=== PATIENT | male | born 1955 | race Caucasian/White ===

== ENCOUNTER 2017-06-18 11:17 | Observation (INO) | payer BC ==
[~2017-06-18] VITALS: Ht 167.6 cm; Wt 70.0 kg
[2017-06-18 11:20] VITALS: BP 112/80; PULSE 100; RESP 20; TEMP 99; O2SAT 99
[2017-06-18] MEDS ORDERED: LOSA25TA PO (11:24)
[2017-06-18 11:39] VITALS: BP 129/93; PULSE 86; RESP 21; TEMP 99.3; O2SAT 95
--- NOTE | 2017-06-18 11:54 | PD ---
HPI Chief Complaint: Chest Pain Time Seen by Provider: 11:54 Travel History International Travel<30 days: No Contact w/Intl Traveler<30days: No Traveled to known affect area: No History of Present Illness HPI 61-year-old male presents to the emergency Department with complaint of chest pressure, shortness of breath, cough, nasal congestion and chest congestion, body aches, headache, dizziness, decreased appetite, fever since Tuesday. MAXIMUM TEMPERATURE of 101.7. Reports sore throat and relates it to frequent coughing exacerbations. Describes chest pressure as heavy and constant and is worse with coughing. Reports sputum production. Denies hemoptysis. Denies heart palpitations. Denies recent surgery or travel. Reports occasional wheezing. Reports frequent cough exacerbations. Denies tobacco use. Denies history of asthma or COPD. Denies abdominal pain, nausea, vomiting. Has been taking Motrin, aspirin, and Aleve for symptom management. Symptoms are moderate in severity. Allergies to penicillin. History of hypertension and takes losartan. Primary care provider is Dr. Rao. Has no other medical complaints. No other modifying factors or associated signs and symptoms. 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) Diminished Hearing: No Hypertension: Yes Tetanus Vaccination: > 5 Years Past Surgical History Abdominal Surgery: Yes (ulcer cauterization) Tonsillectomy: Yes Social History Alcohol Use: Yes (weekend beers ) Tobacco Use: No Substance Use: No Allergies-Medications (Allergen,Severity, Reaction): Coded Allergies: Penicillin (Verified Allergy, Severe, 06/18/17) Reported Meds & Prescriptions Reported Meds & Active Scripts Active Reported Losartan (Losartan Potassium) 25 Mg Tab 25 Mg PO DAILY Review of Systems Except as stated in HPI: all other systems reviewed are Neg Physical Exam Narrative GENERAL: Well-nourished, well-developed male patient, in no acute distress; low-grade fever of 99.3 SKIN: Warm and dry. No rash. HEAD: Atraumatic. Normocephalic. EYES: Pupils equal and round. No scleral icterus. No injection or drainage. ENT: Mucosa pink and moist. No erythema or exudates. No uvular edema. No uvular , palatal, or tonsillar deviation. Airway patent. EARS: Bilateral pinnae and external canals appear within normal limits. Bilateral tympanic membranes without erythema, dullness or perforation. NECK: Trachea midline. No lymphadenopathy. CARDIOVASCULAR: Regular rate and rhythm. No murmur appreciated. RESPIRATORY: No accessory muscle use. Clear to auscultation. Breath sounds equal bilaterally. No retractions or tachypnea. GASTROINTESTINAL: Abdomen soft, non-tender, nondistended. Hepatic and splenic margins not palpable. Bowel sounds are active 4 quadrants. MUSCULOSKELETAL: No obvious deformities. No clubbing. No cyanosis. No edema. NEUROLOGICAL: Awake and alert. Oriented 3. No obvious cranial nerve deficits. Motor grossly within normal limits. Normal speech. Moves all extremities. 5/5 strength to all extremities. PSYCHIATRIC: Appropriate mood and affect; insight and judgment normal. Data Data Last Documented VS Vital Signs Date Time Temp Pulse Resp B/P Pulse Ox O2 Delivery O2 Flow Rate FiO2 06/18/17 13:14 20 06/18/17 11:39 99.3 86 129/93 95 Room Air Orders Electrocardiogram (06/18/17 11:55) Basic Metabolic Panel (Bmp) (06/18/17 11:55) Complete Blood Count With Diff (06/18/17 11:55) Magnesium (Mg) (06/18/17 11:55) Prothrombin Time / Inr (Pt) (06/18/17 11:55) Act Partial Throm Time (Ptt) (06/18/17 11:55) Troponin I (06/18/17 11:55) Chest, Single Ap (06/18/17 11:55) Ecg Monitoring (06/18/17 11:55) Iv Access Insert/Monitor (06/18/17 11:55) Oximetry (06/18/17 11:55) Sodium Chloride 0.9% Flush (Ns Flush) (06/18/17 12:00) Influenzae A/B Antigen (06/18/17 12:00) Ketorolac Inj (Toradol Inj) (06/18/17 12:15) Albuterol Neb (Albuterol Neb) (06/18/17 12:15) Sodium Chlor 0.9% 1000 Ml Inj (Ns 1000 M (06/18/17 13:00) Oseltamivir (Tamiflu) (06/18/17 14:15) Admit Order (Ed Use Only) (06/18/17 14:12) Labs Laboratory Tests Test 06/18/17 11:45 White Blood Count 3.6 TH/MM3 Red Blood Count 5.08 MIL/MM3 Hemoglobin 16.5 GM/DL Hematocrit 45.1 % Mean Corpuscular Volume 88.9 FL Mean Corpuscular Hemoglobin 32.6 PG Mean Corpuscular Hemoglobin 36.7 % Concent Red Cell Distribution Width 13.2 % Platelet Count 118 TH/MM3 Mean Platelet Volume 9.4 FL Neutrophils (%) (Auto) 67.9 % Lymphocytes (%) (Auto) 19.4 % Monocytes (%) (Auto) 11.6 % Eosinophils (%) (Auto) 0.6 % Basophils (%) (Auto) 0.5 % Neutrophils # (Auto) 2.5 TH/MM3 Lymphocytes # (Auto) 0.7 TH/MM3 Monocytes # (Auto) 0.4 TH/MM3 Eosinophils # (Auto) 0.0 TH/MM3 Basophils # (Auto) 0.0 TH/MM3 CBC Comment AUTO DIFF Differential Total Cells 100 Counted Neutrophils % (Manual) 50 % Band Neutrophils % 28 % Lymphocytes % 12 % Monocytes % 10 % Neutrophils # (Manual) 2.8 TH/MM3 Differential Comment FINAL DIFF MANUAL Platelet Estimate LOW Platelet Morphology Comment NORMAL Red Cell Morphology Comment NORMAL Prothrombin Time 11.2 SEC Prothromb Time International 1.0 RATIO Ratio Activated Partial 31.8 SEC Thromboplast Time Sodium Level 133 MEQ/L Potassium Level 3.8 MEQ/L Chloride Level 96 MEQ/L Carbon Dioxide Level 27.6 MEQ/L Anion Gap 9 MEQ/L Blood Urea Nitrogen 16 MG/DL Creatinine 1.32 MG/DL Estimat Glomerular Filtration 55 ML/MIN Rate Random Glucose 89 MG/DL Calcium Level 8.2 MG/DL Magnesium Level 2.1 MG/DL Troponin I LESS THAN 0.02 NG/ML [facility] Medical Decision Making Medical Screen Exam Complete: Yes Emergency Medical Condition: Yes Medical Record Reviewed: Yes Differential Diagnosis Influenza, pneumonia, bronchitis Narrative Course 61-year-old male with cold/flu symptoms. Also complaining of chest pressure and shortness of breath. Lungs are clear and equal throughout. No wheezing on auscultation or audible wheezing. Oxygen saturation is 98% on room air. No retractions or tachypnea. Patient has low-grade fever of 99.3. Reports MAXIMUM TEMPERATURE 101.7 at home. Chest x-ray, BMP, CBC, troponin, EKG, albuterol nebulizer, Toradol ordered. 1250: Influenza B-positive. Chest x-ray with no acute findings. CBC unremarkable. Normal saline bolus ordered. 1310: Sodium 133. Creatinine 1.32. Troponin less than 0.02. 1321: Band neutrophils 28. 1411: Dr Vasquez spoke with Dr. Roth and gave report for patient admission. Physician Communication Physician Communication Dr. Vasquez spoke with Dr. Roth. Diagnosis Primary Impression: Influenza B Admitting Information Admitting Physician Requests: Admit Lissy Nuno Jun 18, 2017 11:54 soup etc. Use an air humidifier/turn off ceiling fans Follow-up with your primary care provider within 1 day Return immediately to the emergency department with worsening of symptoms Disposition: 01 DISCHARGE HOME Condition: Stable Lissy Nuno Jun 18, 2017 11:54
[2017-06-18 12:00] LABS: MEAN CORPUSCULAR HGB CONC 36.7 % (32.0-36.0)
[2017-06-18] MEDS ORDERED: SODIUM CHLORIDE 0.9% FLUSH 10 ML FLUSH IVF PRN (12:00)
[2017-06-18] MEDS ORDERED: KETOROLAC TROMETHAMINE 30 MG/ML (IVP) VIAL IV PUSH ONE (12:15)
[2017-06-18] MEDS ORDERED: RESP: ALBUTEROL 2.5 MG/3 ML NEB (SCH) INH ONE (12:15)
--- NOTE | 2017-06-18 12:30 | RADRPT ---
EXAM DATE/TIME: 06/18/2017 12:06 [facility] COMPARISON: No previous studies available for comparison. INDICATIONS : Vomiting, cough and short of breath. MEDICAL HISTORY : None. SURGICAL HISTORY : None. ENCOUNTER: Initial ACUITY: 4 - 6 days PAIN SCORE: 5/10 LOCATION: Bilateral chest FINDINGS: A single view of the chest demonstrates the lungs to be symmetrically aerated without evidence of mas s, infiltrate or effusion. The cardiomediastinal contours are unremarkable. Osseous structures are intact. CONCLUSION: No acute disease. Eligio Chávez MD on June 18, 2017 at 12:28 Board Certified Radiologist. This report was verified electronically.
[2017-06-18 12:41] LABS: AUTOMATED NEUTROPHIL # 2.5 TH/MM3 (1.8-7.7); BASOPHIL % 0.5 % (0.0-2.0); EOSINOPHIL % 0.6 % (0.0-4.0); HEMATOCRIT 45.1 % (39.0-51.0); LYMPH % 19.4 % (9.0-44.0); LYMPHOCYTE # 0.7 TH/MM3 (1.0-4.8); MEAN CELL VOLUME 88.9 FL (80.0-100.0); MEAN CORPUSCULAR HEMOGLOBIN 32.6 PG (27.0-34.0); MONO % 11.6 % (0.0-8.0); NEUT % 67.9 % (16.0-70.0); PLATELET COUNT 118 TH/MM3 (150-450); RED BLOOD COUNT 5.08 MIL/MM3 (4.50-5.90); RED CELL DISTRIBUTION WIDTH 13.2 % (11.6-17.2); WHITE BLOOD COUNT 3.6 TH/MM3 (4.0-11.0)
[2017-06-18 12:42] LABS: HEMO FLAGS AUTO DIFF
[2017-06-18 12:51] LABS: APTT (PATIENT) 31.8 SEC (24.3-30.1); PROTHROMBIN TIME - PATIENT 11.2 SEC (9.8-11.6)
[2017-06-18] MEDS ORDERED: SODIUM CHLOR 0.9% 1000 ML INJ 1,000 ML IV ONE (13:00)
[2017-06-18 13:01] LABS: ANION GAP 9 MEQ/L (5-15); BICARBONATE 27.6 MEQ/L (21.0-32.0); BLOOD UREA NITROGEN 16 MG/DL (7-18); CHLORIDE 96 MEQ/L (98-107); GLOMERULAR FILTRATION RATE 55 ML/MIN (>89); MAGNESIUM 2.1 MG/DL (1.5-2.5); POTASSIUM 3.8 MEQ/L (3.5-5.1); SODIUM (NA) 133 MEQ/L (136-145)
[2017-06-18 13:13] LABS: BANDS 28 % (0-6); NEUTROPHIL # MANUAL DIFF 2.8 TH/MM3 (1.8-7.7); PLATELET ESTIMATE SMEAR LOW (NORMAL); PLATELET MORPHOLOGY NORMAL (NORMAL); POLYS (SEG NEUTROPHILS) 50 % (16-70); SCAN/DIFF FINAL DIFF MANUAL; WBC DIFF SAMPLE 100
[2017-06-18 13:22] VITALS: BP 151/89; PULSE 105; RESP 20; O2SAT 98
[2017-06-18] MEDS ORDERED: OSELTAMIVIR PHOSPHATE 75 MG CAP PO ONE (14:15)
[2017-06-18] MEDS ORDERED: SODIUM CHLORIDE 0.9% FLUSH 10 ML FLUSH IV FLUSH PRN (14:30)
[2017-06-18] MEDS ORDERED: LACTULOSE SYRUP 20 GM/30 ML CUP PO PRN (14:30)
[2017-06-18] MEDS ORDERED: NALOXONE HCL 0.4 MG/ML AMP IV PRN (14:30)
[2017-06-18] MEDS ORDERED: BISACODYL 10 MG SUPP RECTAL PRN (14:30)
[2017-06-18] MEDS ORDERED: ONDANSETRON HCL 4 MG/2 ML VIAL IVP PRN (14:30)
[2017-06-18] MEDS ORDERED: MAGNESIUM HYDROXIDE SUSP 30 ML CUP PO PRN (14:30)
[2017-06-18] MEDS ORDERED: SENNOSIDES 8.6 MG TAB PO PRN (14:30)
--- NOTE | 2017-06-18 14:40 | PD ---
Data Data Last Documented VS Vital Signs Date Time Temp Pulse Resp B/P Pulse Ox O2 Delivery O2 Flow Rate FiO2 06/18/17 13:14 20 06/18/17 11:39 99.3 86 129/93 95 Room Air Orders Electrocardiogram (06/18/17 11:55) Basic Metabolic Panel (Bmp) (06/18/17 11:55) Complete Blood Count With Diff (06/18/17 11:55) Magnesium (Mg) (06/18/17 11:55) Prothrombin Time / Inr (Pt) (06/18/17 11:55) Act Partial Throm Time (Ptt) (06/18/17 11:55) Troponin I (06/18/17 11:55) Chest, Single Ap (06/18/17 11:55) Ecg Monitoring (06/18/17 11:55) Iv Access Insert/Monitor (06/18/17 11:55) Oximetry (06/18/17 11:55) Sodium Chloride 0.9% Flush (Ns Flush) (06/18/17 12:00) Influenzae A/B Antigen (06/18/17 12:00) Ketorolac Inj (Toradol Inj) (06/18/17 12:15) Albuterol Neb (Albuterol Neb) (06/18/17 12:15) Sodium Chlor 0.9% 1000 Ml Inj (Ns 1000 M (06/18/17 13:00) Oseltamivir (Tamiflu) (06/18/17 14:15) Admit Order (Ed Use Only) (06/18/17 14:12) Labs Laboratory Tests Test 06/18/17 11:45 White Blood Count 3.6 TH/MM3 Red Blood Count 5.08 MIL/MM3 Hemoglobin 16.5 GM/DL Hematocrit 45.1 % Mean Corpuscular Volume 88.9 FL Mean Corpuscular Hemoglobin 32.6 PG Mean Corpuscular Hemoglobin 36.7 % Concent Red Cell Distribution Width 13.2 % Platelet Count 118 TH/MM3 Mean Platelet Volume 9.4 FL Neutrophils (%) (Auto) 67.9 % Lymphocytes (%) (Auto) 19.4 % Monocytes (%) (Auto) 11.6 % Eosinophils (%) (Auto) 0.6 % Basophils (%) (Auto) 0.5 % Neutrophils # (Auto) 2.5 TH/MM3 Lymphocytes # (Auto) 0.7 TH/MM3 Monocytes # (Auto) 0.4 TH/MM3 Eosinophils # (Auto) 0.0 TH/MM3 Basophils # (Auto) 0.0 TH/MM3 CBC Comment AUTO DIFF Differential Total Cells 100 Counted Neutrophils % (Manual) 50 % Band Neutrophils % 28 % Lymphocytes % 12 % Monocytes % 10 % Neutrophils # (Manual) 2.8 TH/MM3 Differential Comment FINAL DIFF MANUAL Platelet Estimate LOW Platelet Morphology Comment NORMAL Red Cell Morphology Comment NORMAL Prothrombin Time 11.2 SEC Prothromb Time International 1.0 RATIO Ratio Activated Partial 31.8 SEC Thromboplast Time Sodium Level 133 MEQ/L Potassium Level 3.8 MEQ/L Chloride Level 96 MEQ/L Carbon Dioxide Level 27.6 MEQ/L Anion Gap 9 MEQ/L Blood Urea Nitrogen 16 MG/DL Creatinine 1.32 MG/DL Estimat Glomerular Filtration 55 ML/MIN Rate Random Glucose 89 MG/DL Calcium Level 8.2 MG/DL Magnesium Level 2.1 MG/DL Troponin I LESS THAN 0.02 NG/ML MDM Supervised Visit with KERI: Yes Narrative Course The history, exam, and medical decision-making in the associated midlevel provider note were completed with my assistance. I reviewed and agree with the findings presented. I attest that I had a [id number] encounter with the patient on the same day, and personally performed and documented my assessment and findings in the medical record. *My assessment and Findings: This is a 61-year-old male who presents to the emergency department with generalized weakness, fatigue and flulike symptoms. He tested positive for influenza B. Labs demonstrate a bandemia of 28% which is worrisome. I think the patient would benefit from IV hydration, observation and repeat blood work in the morning. I don't think he requires antibiotics at this time as I suspect this is all related to influenza. He was given a dose of Tamiflu. Diagnosis Primary Impression: Influenza B Additional Instruction: Ibuprofen or Tylenol as directed and as needed to reduce fever; may alternate ibuprofen and Tylenol as needed every 3 hours to minimize fever [id number] cold/flu medications as directed and as needed for symptom management Get plenty of sleep/rest Drink plenty of fluids to prevent dehydration; such as Gatorade, Powerade, Pedialyte [place] diet to encourage nutrition such as crackers, fruit, applesauce, toast, soup etc. Use an air humidifier/turn off ceiling fans Follow-up with your primary care provider within 1 day Return immediately to the emergency department with worsening of symptoms Zoraida Vasquez MD Jun 18, 2017 14:39
[2017-06-18 14:56] VITALS: BP 122/76; PULSE 83; RESP 16; TEMP 99; O2SAT 95
[2017-06-18] MEDS: SODIUM CHLOR 0.9% 1000 ML INJ 1,000 ML IV SCH (14:56)
[2017-06-18 16:22] VITALS: BP 114/67; PULSE 82; RESP 15; TEMP 98.1; O2SAT 96
--- NOTE | 2017-06-18 16:38 | MH ---
cc: GENESIS RUSSELL MD Corrected Copy: 06/20/17 DATE OF ADMISSION: 06/18/2017 CHIEF COMPLAINT: Cough, fever, chills, atypical chest pain. TRAVEL IN THE LAST THIRTY DAYS: None. HISTORY OF PRESENT ILLNESS: This is a pleasant 61-year-old white male who had been in his usual state of health up until about four or five days ago. He started noticing acute onset of body aches, headaches, dizziness, coughing to the point that he is now having musculoskeletal chest pain. The patient was unable to sleep at night due to the coughing and the body aches. He came to the emergency room for further evaluation and was found to be positive for influenza B. PAST MEDICAL HISTORY: 1. Heart murmur. 2. Hypertension. 3. Ulcers. PAST SURGICAL HISTORY: 1. Ulcer cauterization. ALLERGIES: PENICILLIN. MEDICATIONS: 1. Losartan. SOCIAL HISTORY: The patient is and currently here with his as a support system. No tobacco. No illicit drugs. Beer drinking mostly on the weekends. REVIEW OF SYSTEMS: A twelve point review was obtained and positives noted are noted in the history of present illness which include headache, dizziness, body aches, chest congestion, nasal congestion, cough, atypical chest pain onset approximately four days ago. Other systems not mentioned negative or unremarkable. PHYSICAL EXAMINATION: VITAL SIGNS: Temperature is 99.3, pulse 83, respirations 16, blood pressure 122/76 and 112/80 on admission. 02 sat 95 currently on room air. GENERAL: A well-developed, well-nourished middle-aged male who looks to be his stated age resting in the bed. He is alert and oriented and is a good historian. SKIN: Flushed, warm and dry. HEAD, EYES, EARS, NOSE, THROAT: Normocephalic and atraumatic. Pupils equal, round and reactive to light and accommodation. The mucous membranes are dry. No scleral icterus. NECK: The neck is supple. CARDIOVASCULAR: S1-S2 and rhythm is regular. Soft systolic murmur noted at the lower left sternal border. He has no edema and his pulses are intact. RESPIRATORY: Lungs are essentially clear to auscultation. No wheezes, rales or rhonchi noted. He is positive for cough but no sputum production. ABDOMEN: The abdomen is flat, soft, nontender and nondistended. Active bowel sounds. MUSCULOSKELETAL: Moves his extremities with purpose. He has equal hand fraud analyst. No obvious deformity. NEUROLOGIC: He is alert and oriented. Speech is clear. PSYCHIATRIC: Appropriate mood and affect. DIAGNOSTIC DATA: White blood cell count 3.6, RBCs 5.08, hemoglobin 16.5, hematocrit 45.1, MCHC 36.7, platelet count 118,000, monocyte count 11.6, lymphocyte count 0.7. PT and INR 1. Chemistries: Sodium 133, potassium 3.8, chloride 96, carbon dioxide 27.6, anion gap 9, BUN 16, creatinine 1.32, GFR 55, random glucose 89, calcium 8.2. Troponin 0.02. RADIOLOGICAL STUDIES: Normal chest x-ray. ASSESSMENT AND PLAN: 1. Influenza B with cough uncontrolled. 2. Thrombocytopenia. 3. Hyponatremia, mild. 4. Acute kidney injury. PLAN: 1. Admit. 2. We are going to monitor the patient's vital signs every 4 hours and as warranted. 3. Monitor his labs. 4. Continue with ECG monitoring. 5. The patient received a DuoNeb treatment in the emergency room with sodium chloride bolus. We are going to continue those IV fluids for gentle hydration. 6. We have placed the patient on Tamiflu 75 milligrams p.o. twice a day. 7. He has bowel regimen if needed. The patient states that he did have a bowel movement in the past 24 hours so we will monitor. 8. DVT prophylaxis with heparin. 9. Lab work ordered in the morning. 10. Medications for nausea and pain. 11. Heart-healthy diet. 12. Cozaar has been re-started. The patient is full code and full aggressive care. We will follow. Dictated by MARY Botello. MD ALFONSO Whatley/NATHALY /4:14 PM /8:50 AM
--- NOTE | 2017-06-18 16:39 | HHI.PR ---
Objective Objective Results - Vital Signs Date Time Temp Pulse Resp B/P Pulse Ox O2 Delivery O2 Flow Rate FiO2 06/18/17 16:22 98.1 82 15 114/67 96 06/18/17 14:56 99.0 83 16 122/76 95 Room Air 06/18/17 13:14 20 06/18/17 11:39 99.3 86 21 129/93 95 Room Air 06/18/17 11:32 Room Air 06/18/17 11:20 99.0 100 20 112/80 99 Room Air Result Diagram: 06/18/17 1145 06/18/17 1145 Physical Exam Physical Exam PHYSICAL EXAMINATION GENERAL: This is a well-developed, well-nourished male who appears to be in no acute distress. He is alert and awake, []. HEAD: Normocephalic without any lesion or mass noted. Facial features appear symmetric. OROPHARYNGEAL: Oropharynx without erythema or edema. NECK: Supple. No nuchal rigidity or lymphadenopathy. Trachea midline without deviation. CARDIAC: Regular rhythm, regular rate, S1 and S2 are heard. Murmur []; no gallops or rubs. LUNGS: Clear to auscultation bilaterally. [] wheeze, [] rhonchi or [] rale. No use of accessory muscles on inspiration or expiration. ABDOMEN: Soft, nontender, no organomegaly or masses. Bowel sounds are heard in all four quadrants. No rebound. No guarding. EXTREMITIES: [] edema. Pulses equal bilateral. [] cyanosis. NEUROLOGICAL: Patient mood and affect appropriate. No focal deficit SKIN:Warm and moist A/P Assessment and Plan dictated, [id number] flu B SHARITA leukopenia cough, atypical cp fever, thrombocytopenia Susan Andrade Jun 18, 2017 16:38
[2017-06-18 20:15] VITALS: BP 139/75; PULSE 82; RESP 17; TEMP 97.5; O2SAT 96
[2017-06-18] MEDS ORDERED: ACETAMINOPHEN 325 MG TAB PO PRN (20:15)
[2017-06-18] MEDS ORDERED: ACETAMINOPHEN/HYDROcodone 325 MG/5 MG TAB PO PRN (20:15)
[2017-06-18] MEDS ORDERED: guaiFENesin SOLUTION 200 MG/10 ML CUP PO PRN (20:15)
[2017-06-18] MEDS: DOCUSATE SODIUM 50 MG/SENNA 8.6 MG TAB PO SCH (21:00)
[2017-06-18] MEDS: HEPARIN SODIUM - SQ 10,000 UNITS/ML VIAL SQ SCH (21:35)
[2017-06-18] MEDS: SODIUM CHLORIDE 0.9% FLUSH 10 ML FLUSH IV FLUSH SCH (21:36)
[2017-06-18] MEDS: OSELTAMIVIR PHOSPHATE 75 MG CAP PO SCH (21:36)
[2017-06-19] VITALS (9 sets, daily range): BP systolic 116–138; BP diastolic 60–76; PULSE 69–91; RESP 17–20; TEMP 96.8–101; O2SAT 95–96
[2017-06-19] MEDS: SODIUM CHLOR 0.9% 1000 ML INJ 1,000 ML IV SCH ×3 (00:39→21:14)
--- NOTE | 2017-06-19 06:33 | RADRPT ---
EXAM DATE/TIME: 06/19/2017 06:20 [facility] COMPARISON: CHEST SINGLE AP, June 18, 2017, 12:06. INDICATIONS : Influenza. MEDICAL HISTORY : None. SURGICAL HISTORY : None. ENCOUNTER: Subsequent ACUITY: 2 days PAIN SCORE: 0/10 LOCATION: Bilateral chest FINDINGS: PA and lateral views of the chest demonstrate the lungs to be symmetrically aerated without evidence of mass, infiltrate or effusion. Small calcified granuloma right upper lobe. The cardiomediastinal co ntours are unremarkable. Osseous structures are intact. CONCLUSION: No acute disease. Tony Rebolledo MD on June 19, 2017 at 6:31 Board Certified Radiologist. This report was verified electronically.
--- NOTE | 2017-06-19 08:37 | HHI.PR ---
Subjective Remarks Still coughing Sleeping this morning Fever this past a.m. States he is feeling somewhat better (Susan Andrade) Objective Objective Results - Vital Signs Date Time Temp Pulse Resp B/P Pulse Ox O2 Delivery O2 Flow Rate FiO2 06/19/17 05:37 98.8 06/19/17 04:04 101.0 85 17 138/71 96 06/19/17 00:00 98.1 81 17 131/70 95 06/18/17 20:15 97.5 82 17 139/75 96 06/18/17 16:22 98.1 82 15 114/67 96 06/18/17 14:56 99.0 83 16 122/76 95 Room Air 06/18/17 13:14 20 06/18/17 11:39 99.3 86 21 129/93 95 Room Air 06/18/17 11:32 Room Air 06/18/17 11:20 99.0 100 20 112/80 99 Room Air I/O 06/18/17 06/18/17 06/18/17 06/19/17 06/19/17 06/19/17 07:00 15:00 23:00 07:00 15:00 23:00 Intake Total 50 ml Balance 50 ml Intake Oral 50 ml (Susan Andrade) Result Diagram: 06/18/17 1145 06/18/17 1145 ROS General: Fatigue, Weakness, Other (10 point ROS done positives noted) Pulmonary: Cough, SOB (Susan Andrade) Physical Exam Physical Exam PHYSICAL EXAMINATION GENERAL: This is a well-developed, well-nourished male Resting in the bed He is drowsy but responds to verbal stimuli HEAD: Normocephalic Facial features appear symmetric. OROPHARYNGEAL: Oropharynx moist NECK: Supple. Trachea midline without deviation. CARDIAC: Regular rhythm, regular rate, S1 and S2 are heard LUNGS: Diminished to auscultation bilaterally. Mild rhonchi mild use of accessory muscles on inspiration or expiration. ABDOMEN: Soft, nontender, no organomegaly or masses. Bowel sounds are heard in all four quadrants. No rebound. No guarding. EXTREMITIES: no edema. Pulses equal bilateral. NEUROLOGICAL: Patient mood and affect appropriate. Speech is clear SKIN:Warm and dry (Susan Andrade) A/P Assessment and Plan flu B IV fluids continue, medical management with Tamiflu, cough, added duo neb treatments SHARITA Continue IV fluids which should help to stabilize, patient has not been drinking or eating as much lately leukopenia Positive for influenza B cough, atypical cp Added dual nebs this morning encourage patient to cough and deep breathe, brace his chest with a pillow to cough fever, Continues, treated this early a.m., states he is feeling somewhat better thrombocytopenia Monitor his labs Hyponatremia, continue IV fluids normal saline at 100 cc an hour, monitor his labs Discussed with patient Discussed with nurse Discussed with Dr. Enriquez, seen on his behalf (Susan Andrade) Assessment and Plan seen, examined by myself, Dr Enriquez, today Discussed with patient He feels better Labs still pending Likely he can be discharged home today after lab results Discussed with nurse Discussed with mid level provider The exam, history, and the medical decision-making described in the above note were completed with the assistance of the mid-level provider. I reviewed the findings presented. I attest that I had a [id number] encounter with the patient on the same day, and personally performed and documented my assessment and findings in the medical record. 45 minutes (Joanne Enriquez MD) Susan Andrade Jun 19, 2017 08:37 Joanne Enriquez MD Jun 19, 2017 12:36
[2017-06-19] MEDS: DOCUSATE SODIUM 50 MG/SENNA 8.6 MG TAB PO SCH ×2 (09:50→21:00)
[2017-06-19] MEDS: SODIUM CHLORIDE 0.9% FLUSH 10 ML FLUSH IV FLUSH SCH ×2 (09:51→21:16)
[2017-06-19] MEDS: LOSARTAN 25 MG TAB PO SCH (09:51)
[2017-06-19] MEDS: HEPARIN SODIUM - SQ 10,000 UNITS/ML VIAL SQ SCH (09:51)
[2017-06-19] MEDS: OSELTAMIVIR PHOSPHATE 75 MG CAP PO SCH ×2 (09:52→21:16)
[2017-06-19] MEDS: RESP: ALBUTEROL 2.5 MG/IPRATROPIUM 0.5 MG NEB (SCH) NEB ×3 (11:47→19:41)
--- NOTE | 2017-06-19 12:19 | EKG ---
Date Performed: 06/18/2017 Time Performed: 11:38:29 PTAGE: 61 years EKG: Sinus rhythm NORMAL ECG NO PREVIOUS TRACING DOCTOR: Saad Duong Interpretating Date/Time 06/19/2017 12:17:35
[2017-06-19 14:20] LABS: AUTOMATED NEUTROPHIL # 0.7 TH/MM3 (1.8-7.7); BASOPHIL % 0.5 % (0.0-2.0); HEMATOCRIT 41.1 % (39.0-51.0); LYMPH % 40.7 % (9.0-44.0); LYMPHOCYTE # 0.6 TH/MM3 (1.0-4.8); MEAN CELL VOLUME 90.2 FL (80.0-100.0); MEAN CORPUSCULAR HEMOGLOBIN 31.7 PG (27.0-34.0); MEAN CORPUSCULAR HGB CONC 35.2 % (32.0-36.0); MONO % 14.3 % (0.0-8.0); NEUT % 42.5 % (16.0-70.0); PLATELET COUNT 90 TH/MM3 (150-450); RED BLOOD COUNT 4.56 MIL/MM3 (4.50-5.90); RED CELL DISTRIBUTION WIDTH 13.2 % (11.6-17.2); WHITE BLOOD COUNT 1.6 TH/MM3 (4.0-11.0)
[2017-06-19 14:38] LABS: HEMO FLAGS AUTO DIFF
[2017-06-19 15:08] LABS: BICARBONATE 28.6 MEQ/L (21.0-32.0); POTASSIUM 3.7 MEQ/L (3.5-5.1)
[2017-06-19 15:11] LABS: BANDS 7 % (0-6); BASOPHILS 1 % (0-2); EOSINOPHILS 2 % (0-4); NEUTROPHIL # MANUAL DIFF 0.8 TH/MM3 (1.8-7.7); POLYS (SEG NEUTROPHILS) 43 % (16-70); WBC DIFF SAMPLE 100
[2017-06-19 15:14] LABS: PLATELET ESTIMATE SMEAR LOW (NORMAL); PLATELET MORPHOLOGY NORMAL (NORMAL); SCAN/DIFF FINAL DIFF MANUAL
[2017-06-19] MEDS ORDERED: RESP: ALBUTEROL 2.5 MG/IPRATROPIUM 0.5 MG NEB (PRN) NEB (19:56)
--- NOTE | 2017-06-19 21:16 | MB ---
cc: JOANNE RUSSELL MD, G. FREDERICK M.D. DEVERAS, RUBY ANNE E. M.D. Oncology new patient consultative summary DATE OF CONSULTATION 06/19/2017 DATE OF [address] Joanne Russell. CHIEF COMPLAINT Dr. Russell requested consultation for Mr. Love regarding leukopenia and thrombocytopenia. HISTORY OF PRESENT ILLNESS Mr. Love is a 61-year-old man with no significant past history. He was doing well, presented to the emergency room with chest pressure and shortness of breath, nasal congestion, body aches and fever. He had fever Tuesday night and was in bed all day Tuesday. He had sore throat and relates it to coughing. He had an uneventful weekend and placed golf with his friends. He had no sick contact. No recent travels. He was admitted to the hospital under observation. LABORATORY DATA Laboratory findings include positive strep and positive for influenza B antigen. CBC shows a white count of 3.6 on admission, predominately monocytes. There is mild bandemia. Platelet count is 118,000. On repeat his white blood cell count decreased to 1.6, platelet count of 90,000. His bands decreased. His neutrophils are 800. PTT mildly prolonged. Total protein is decreased at 5.8. Renal function is normal. He is well-known patient to Dr. [place] [facility]. He reports a checkup recently and had blood work that was completely normal. He has unaware of ever having leukopenia or thrombocytopenia. He considers himself healthy. He is up-to-date with the screening cancer. He reports his only vice is drinking. He drinks on weekends socially. He continues to feel the same symptoms. He is achy. His T max 100.2. He was started on Tamiflu on 06/18. His is in the midst of getting her dose of prophylactic Tamiflu through Dr. Romo's office. Hematology/Oncology is consulted for the leukopenia / neutropenia and thrombocytopenia. Rest of his review of systems is negative. PAST MEDICAL HISTORY 1. Hypertension. 2. Ulcer. 3. Heart murmur. PAST SURGICAL HISTORY Colonoscopy, endoscopy with ulcer cauterization. SOCIAL HISTORY He is and lives with his . He denies any tobacco or illicit drug use. He gets toxicology testing frequently at his work. He works for [employer]. He drinks beer mostly on the weekends. FAMILY HISTORY Father had gastric cancer and of surgical complication in his 70s. Mother recently . No history of cancer. PHYSICAL EXAMINATION VITAL SIGNS: Temperature 100.2, heart rate 91, respiratory 17, blood pressure 130/76, saturation 96%. GENERAL: Mr. Love is a well-developed, well-nourished man who looks toxic and ill. He is hyperemic with flushed cheeks. He looks congested. She has a cough. HEENT: His pupils are round, reactive to light and accommodation. Oropharynx is clear. NECK: Supple. LUNGS: Clear. CARDIOVASCULAR: Exam reveals normal rate, rhythm. ABDOMEN: Benign. No hepatosplenomegaly. EXTREMITIES: Lower extremity with no edema. NEUROLOGIC: Exam is nonfocal. LABORATORY DATA As described above. ASSESSMENT/PLAN Mr. Love is a 61-year-old man with a history of hypertension. He had no apparent sick contact, but still acquired flu and strep. He is admitted with influenza B strain. He does not usually get a flu vaccinations although it is offered at work for free. Associated with his flu is leukopenia and thrombocytopenia. We discussed these findings may be associated to his acute viral illness. It was not present before per history. He is noted to have a further decline in his white count temporarily related to starting the Tamiflu which has known toxicity of cytopenia. In the meantime repeat CBC, retic, LDH, smear will be checked. I recommend no specific therapy. We will monitor him closely. He denies any risk factor for HIV and defer from checking. We discussed allowing him to continue on the Tamiflu and anticipate prompt recovery. After discharge he may follow up with Dr. Romo to repeat a CBC and confirm that his leukopenia and thrombocytopenia were related to his current illness. His questions were answered to his satisfaction. He is eager to go home. We will see his progress and response to treatment tomorrow. He has good support. We defer to Dr. Russell the timing of his discharge. Follow up as an outpatient pending the results of laboratory evaluation. Clinically no splenomegaly and therefore defer ultrasound evaluation. MD DEVI Parada/GISELA /8:35 PM /8:50 PM MTDIta
[2017-06-20 04:04] VITALS: BP 135/75; PULSE 90; RESP 17; TEMP 99.4; O2SAT 98
[2017-06-20] MEDS: SODIUM CHLOR 0.9% 1000 ML INJ 1,000 ML IV SCH (06:11)
[2017-06-20 06:18] LABS: RETIC % 0.8 % (0.4-3.0)
[2017-06-20 06:19] LABS: AUTOMATED NEUTROPHIL # 1.2 TH/MM3 (1.8-7.7); BASOPHIL % 0.6 % (0.0-2.0); EOSINOPHIL % 1.5 % (0.0-4.0); HEMATOCRIT 43.3 % (39.0-51.0); LYMPH % 37.1 % (9.0-44.0); LYMPHOCYTE # 0.9 TH/MM3 (1.0-4.8); MEAN CORPUSCULAR HGB CONC 35.6 % (32.0-36.0); MONO % 14.8 % (0.0-8.0); PLATELET COUNT 98 TH/MM3 (150-450); RED BLOOD COUNT 4.81 MIL/MM3 (4.50-5.90); RED CELL DISTRIBUTION WIDTH 13.2 % (11.6-17.2); REVIEW FLAG FINAL; WHITE BLOOD COUNT 2.5 TH/MM3 (4.0-11.0)
[2017-06-20 06:21] LABS: HEMO FLAGS AUTO DIFF
[2017-06-20 06:27] LABS: APTT (PATIENT) 30.8 SEC (24.3-30.1)
[2017-06-20 06:45] LABS: ALT (GPT) 47 U/L (12-78); ANION GAP 7 MEQ/L (5-15); AST (GOT) 34 U/L (15-37); BICARBONATE 28.8 MEQ/L (21.0-32.0); BLOOD UREA NITROGEN 8 MG/DL (7-18); CHLORIDE 102 MEQ/L (98-107); GLOMERULAR FILTRATION RATE 74 ML/MIN (>89); POTASSIUM 4.5 MEQ/L (3.5-5.1); SODIUM (NA) 138 MEQ/L (136-145)
[2017-06-20 06:47] LABS: ALKALINE PHOSPHATASE 61 U/L (45-117); LDH SERUM 219 U/L (87-241); TOTAL BILIRUBIN ADULT 0.7 MG/DL (0.2-1.0)
[2017-06-20 07:25] VITALS: BP 137/92; PULSE 82; RESP 16; TEMP 98.3; O2SAT 97
[2017-06-20 07:45] LABS: PLATELET ESTIMATE SMEAR LOW (NORMAL); PLATELET MORPHOLOGY NORMAL (NORMAL); SCAN/DIFF AUTO DIFF CONFIRMED
--- NOTE | 2017-06-20 08:33 | HHI.PR ---
Subjective Remarks Continues to improve Able to stand at bedside without dizziness Mild fever, 99.4 (Susan Andrade) Objective Objective Results - Vital Signs Date Time Temp Pulse Resp B/P Pulse Ox O2 Delivery O2 Flow Rate FiO2 06/20/17 07:25 98.3 82 16 137/92 97 06/20/17 04:04 99.4 90 17 135/75 98 06/19/17 23:38 99.2 87 17 126/72 96 06/19/17 21:05 98.8 06/19/17 19:37 100.2 91 17 130/76 96 06/19/17 15:47 98.6 70 18 118/60 95 06/19/17 12:40 97.8 85 18 116/73 95 06/19/17 08:39 96.8 69 20 116/61 96 I/O 06/19/17 06/19/17 06/19/17 06/20/17 06/20/17 06/20/17 06:59 14:59 22:59 06:59 14:59 22:59 Intake Total 1240 ml Output Total 400 ml Balance 840 ml Intake Oral 240 ml IV Total 1000 ml Output Urine Total 400 ml (Susan Andrade) Result Diagram: 06/20/17 0606/20/17 0605 ROS General: Fatigue, Weakness (10 point ROS done positives noted improving), Other Pulmonary: Cough, SOB (exertional only) (Susan Andrade) Physical Exam Physical Exam PHYSICAL EXAMINATION GENERAL: This is a well-developed, well-nourished male Resting in the bed. He is alert and awake. HEAD: Normocephalic, face is slightly flushed Facial features appear symmetric. OROPHARYNGEAL: Oropharynx clean NECK: Supple. Trachea midline without deviation. CARDIAC: Regular rhythm, regular rate, S1 and S2 are heard. LUNGS: Mild diminished to auscultation mild rhonchi No use of accessory muscles on inspiration or expiration. ABDOMEN: Soft, nontender, no organomegaly or masses. Bowel sounds are heard in all four quadrants. No rebound. No guarding. EXTREMITIES: no edema. Pulses equal bilateral NEUROLOGICAL: Patient mood and affect appropriate. No focal deficit SKIN:Warm and moist (Susan Andrade) A/P Assessment and Plan flu B IV fluids continue, medical management with Tamiflu, cough, added duo neb treatments,` cough better States overall he is feeling better, able to stand at bedside, no acute dizziness, encourage good nutrition and by mouth fluids SHARITA Continue IV fluids which should help to stabilize, appetite and by mouth intake intake have improved, leukopenia Positive for influenza B, discussed with patient the need to wash hands frequently, and make sure that he does not go back to work until his fever is completely gone. We'll discuss with Dr. Enirquez when he can go back and discharge plan of care which may be a week or 2, hematology consult to discuss his leukopenia which is probably due to his acute viral illness cough, atypical cp Added dual nebs this morning encourage patient to cough and deep breathe, brace his chest with a pillow to cough Cough improved fever, Continues, treated this early a.m., states he is feeling somewhat better, thrombocytopenia Monitor his labs, hematology consult for his thrombocytopenia and he is leukopenia which is probably due to his acute viral illness, needs to have his labs monitored until they normalize, low-grade fever 99.4 Hyponatremia, continue IV fluids normal saline at 100 cc an hour, monitor his labs Discharge planning possible today, home for more rest Discussed with patient Discussed with nurse Discussed with Dr. Enriquez, seen on his behalf (Susan Andrade) Assessment and Plan seen, examined by myself, Dr Enriquez, today Discussed with patient He was seen by hematology Discharge home today on Tamiflu Follow CBC in one week Discussed with mid level provider The exam, history, and the medical decision-making described in the above note were completed with the assistance of the mid-level provider. I reviewed the findings presented. I attest that I had a [id number] encounter with the patient on the same day, and personally performed and documented my assessment and findings in the medical record. 40 minutes (Joanne Enriquez MD) Susan Andrade Jun 20, 2017 08:33 Joanne Enriquez MD Jun 20, 2017 21:03
[2017-06-20] MEDS: LOSARTAN 25 MG TAB PO SCH (09:06)
[2017-06-20] MEDS: SODIUM CHLORIDE 0.9% FLUSH 10 ML FLUSH IV FLUSH SCH (09:06)
[2017-06-20] MEDS: OSELTAMIVIR PHOSPHATE 75 MG CAP PO SCH (09:06)
[2017-06-20] MEDS: DOCUSATE SODIUM 50 MG/SENNA 8.6 MG TAB PO SCH (09:06)
--- NOTE | 2017-06-20 10:57 | PD.ONC.PN ---
Subjective Subjective Remarks Tmax 100.2 overnight. No complaints. hoping to go home today. Objective Data Date Time Temp Pulse Resp B/P Pulse Ox O2 Delivery O2 Flow Rate FiO2 06/20/17 07:25 98.3 82 16 137/92 97 06/20/17 04:04 99.4 90 17 135/75 98 06/19/17 23:38 99.2 87 17 126/72 96 06/19/17 21:05 98.8 06/19/17 19:37 100.2 91 17 130/76 96 06/19/17 15:47 98.6 70 18 118/60 95 06/19/17 12:40 97.8 85 18 116/73 95 Result Diagram: 06/20/17 0605 06/20/17 0605 Laboratory Results Laboratory Tests Test 06/19/17 06/20/17 13:17 06:05 White Blood Count 1.6 TH/MM3 2.5 TH/MM3 Red Blood Count 4.56 MIL/MM3 4.81 MIL/MM3 Hemoglobin 14.5 GM/DL 15.4 GM/DL Hematocrit 41.1 % 43.3 % Mean Corpuscular Volume 90.2 FL 90.0 FL Mean Corpuscular Hemoglobin 31.7 PG 32.0 PG Mean Corpuscular Hemoglobin 35.2 % 35.6 % Concent Red Cell Distribution Width 13.2 % 13.2 % Platelet Count 90 TH/MM3 98 TH/MM3 Mean Platelet Volume 8.4 FL 8.0 FL Neutrophils (%) (Auto) 42.5 % 46.0 % Lymphocytes (%) (Auto) 40.7 % 37.1 % Monocytes (%) (Auto) 14.3 % 14.8 % Eosinophils (%) (Auto) 2.0 % 1.5 % Basophils (%) (Auto) 0.5 % 0.6 % Neutrophils # (Auto) 0.7 TH/MM3 1.2 TH/MM3 Lymphocytes # (Auto) 0.6 TH/MM3 0.9 TH/MM3 Monocytes # (Auto) 0.2 TH/MM3 0.4 TH/MM3 Eosinophils # (Auto) 0.0 TH/MM3 0.0 TH/MM3 Basophils # (Auto) 0.0 TH/MM3 0.0 TH/MM3 CBC Comment AUTO DIFF AUTO DIFF Differential Total Cells 100 Counted Neutrophils % (Manual) 43 % Band Neutrophils % 7 % Lymphocytes % 34 % Monocytes % 13 % Eosinophils % 2 % Basophils % 1 % Neutrophils # (Manual) 0.8 TH/MM3 Differential Comment FINAL DIFF AUTO DIFF MANUAL CONFIRMED Platelet Estimate LOW LOW Platelet Morphology Comment NORMAL NORMAL Sodium Level 138 MEQ/L 138 MEQ/L Potassium Level 3.7 MEQ/L 4.5 MEQ/L Chloride Level 104 MEQ/L 102 MEQ/L Carbon Dioxide Level 28.6 MEQ/L 28.8 MEQ/L Anion Gap 5 MEQ/L 7 MEQ/L Blood Urea Nitrogen 11 MG/DL 8 MG/DL Creatinine 0.96 MG/DL 1.03 MG/DL Estimat Glomerular Filtration 80 ML/MIN 74 ML/MIN Rate Random Glucose 85 MG/DL 82 MG/DL Calcium Level 7.3 MG/DL 8.0 MG/DL Protein Corrected Calcium 8.0 MG/DL Total Protein 5.8 GM/DL 6.5 GM/DL Red Cell Morphology Comment NORMAL Reticulocyte Count 0.8 % Absolute Reticulocyte Count 38.0 MIL/L Prothrombin Time 11.0 SEC Prothromb Time International 1.0 RATIO Ratio Activated Partial 30.8 SEC Thromboplast Time Total Bilirubin 0.7 MG/DL Aspartate Amino Transf 34 U/L (AST/SGOT) Alanine Aminotransferase 47 U/L (ALT/SGPT) Alkaline Phosphatase 61 U/L Lactate Dehydrogenase 219 U/L Albumin 3.3 GM/DL Culture Results Microbiology Date/Time Procedure Status Source Growth 06/18/17 12:00 Influenza Types A,B Antigen (FLIP) Received Nasal Aspirate Pending 06/18/17 12:25 Influenza Types A,B Antigen (FLIP) - Final Complete Nasal Aspirate Positive For Flu B Antigen Administered Medications Medications (Trade) Dose Ordered Sig/Charli Route PRN Reason Start Time Stop Time Status Last Admin Dose Admin Sodium Chloride (NS 1000 ml Inj) 1,000 ml @ 100 mls/hr Q10H IV 06/18/17 14:18 06/20/17 06:11 Sodium Chloride (NS Flush) 2 ml BID IV FLUSH 06/18/17 21:00 06/20/17 09:06 Senna/Docusate Sodium (Sophia-Colace) 1 tab BID PO 06/18/17 21:00 06/20/17 09:06 Oseltamivir Phosphate (Tamiflu) 75 mg BID PO 06/18/17 21:00 06/20/17 09:06 Losartan Potassium (Cozaar) 25 mg DAILY PO 06/19/17 09:00 06/20/17 09:06 Acetaminophen (Tylenol) 650 mg Q4H PRN PO FEVER 06/18/17 20:15 06/19/17 04:13 Objective Remarks GENERAL: middle aged male lying supine in bed resting. SKIN: Warm and dry. HEAD: Normocephalic. EYES: No scleral icterus. No injection or drainage. NECK: Supple, trachea midline. CARDIOVASCULAR: Regular rate and rhythm RESPIRATORY: Breath sounds equal bilaterally. No accessory muscle use. GASTROINTESTINAL: Abdomen soft, non-tender, nondistended. EXTREMITIES: No cyanosis NEUROLOGICAL: No obvious focal deficit. Awake, alert, and oriented x3. Assessment/Plan Problem List: (1) Leukopenia Status: Acute Plan: --likely d/t viral illness + medication side effect --Clinically no splenomegaly and therefore defer ultrasound evaluation. (2) Thrombocytopenia Status: Acute Plan: --monitor only, no specific therapy recommended. --likely d/t acute viral illness + medication side effect --retic count low normal, LDH WNL Assessment 61y/o male admitted with flu, hematology consulted for leukopenia and thrombocytopenia. h/o Hypertension. Ulcer. Heart murmur. Colonoscopy, endoscopy with ulcer cauterization. Plan 1. monitor CBC 2. follow up with primary once discharged Trinity Cordero Jun 20, 2017 10:57 Trinity Cordero Jun 20, 2017 10:57
[2017-06-20 12:23] VITALS: BP 151/87; PULSE 76; RESP 12; TEMP 99.2; O2SAT 95
[2017-06-20] MEDS ORDERED: OSEL75 PO (13:43)
== END 2017-06-20 16:04 | disposition home or self-care (01) ==
LOC: NEPD 11:17 → NEDA 14:13 → NEPGCP 15:46
PROVIDERS: ADMIT Specialist; ATTEND Specialist
DX: J10.1 Influenza due to other identified influenza virus with other respiratory manifestations (principal); D69.6 Thrombocytopenia, unspecified; D72.819 Decreased white blood cell count, unspecified; E87.1 Hypo-osmolality and hyponatremia; N17.9 Acute kidney failure, unspecified; I10 Essential (primary) hypertension; Z88.0 Allergy status to penicillin
CPT/HCPCS: 71010; 71020; 80048; 80053; 83615; 83735; 84155; 84484; 85007; 85025; 85027; 85044; 85610; 85730; 87804; 93005; 94640; 94664; 96360; 96361; 96372; 99285; G0378; J1644; J1885; J7030; J7613